=== PATIENT | female | born 1950 | race Caucasian/White ===

== ENCOUNTER → 2020-05-24 | Outpatient (CLI) | payer MEDICARE ==
[~2020-05-24] MED LIST: AMLO-211 PO; CARV6.2512 PO; CLOP75TA PO; ERGO500017 PO; FENO160T PO; FERR-46 PO; FURO80TA3 PO; ROSU40TA PO; SODI650T PO; SPIR25TA5 PO
[2020-05-24 17:12] LABS: BASOPHILS % (AUTO) 1 % (0-1); EOSINOPHILS % (AUTO) 3 % (1-7); LYMPHOCYTES % (AUTO) 23 % (22-44); MEAN CORPUSCULAR HEMOGLOBIN 27.6 pg (27.0-34.8); MEAN CORPUSCULAR HGB CONC 33.4 g/dL (32.4-35.8); MONOCYTES % (AUTO) 7 % (2-9); NEUTROPHILS % (AUTO) 67 % (42-75); PLATELET COUNT 437 x10^3/uL (130-400); RED BLOOD COUNT 4.74 x10^6/uL (3.82-5.3); RED CELL DISTRIBUTION WIDTH 15.3 % (9.6-15.2)
[2020-05-24 17:17] LABS: MD NO
[2020-05-24 17:20] LABS: ALANINE AMINOTRANSFERASE 21 U/L (12-78); ALBUMIN 2.6 g/dL (3.4-5.0); ANION GAP 9 mmol/L (5-15); CALCIUM 8.8 mg/dL (8.5-10.1); CHLORIDE 114 mmol/L (98-107); CREATININE 4.06 mg/dL (0.55-1.02)
[2020-05-24 17:23] LABS: ALKALINE PHOSPHATASE 83 U/L (45-117); BILIRUBIN,TOTAL 0.2 mg/dL (0.2-1.0); TOTAL PROTEIN 6.8 g/dL (6.4-8.2)
== END | disposition home or self-care (01) ==
LOC: STAR 15:27
PROVIDERS: ATTEND Surgery
DX: Z01.812 Encounter for preprocedural laboratory examination (principal); Z20.822 Contact with and (suspected) exposure to COVID-19; R94.31 Abnormal electrocardiogram [ECG] [EKG]; N18.9 Chronic kidney disease, unspecified
CPT/HCPCS: 36415; 80053; 85025; 93005; U0003

== ENCOUNTER → 2020-05-30 | Day surgery (SDC) | payer MEDICARE ==
[~2020-05-30] MED LIST changes: +CHLORHEXIDINE 15 ML UDC MM ONE; +CHLORHEXIDINE 15 ML UDC ONE; +HEPARIN 1,000 UNITS/ML, 10ML ONE; +PROTAMINE SULFATE 10 MG/ML, 5ML ONE; +SODIUM CHLORIDE 0.9% 1,000 ML IV SCH
== END | disposition home or self-care (01) ==
LOC: OR 16:13
PROVIDERS: ATTEND Surgery
DX: Z02.9 Encounter for administrative examinations, unspecified (principal)
CPT/HCPCS: J1644; J2720

== ENCOUNTER 2020-06-29 15:28 | Day surgery (SDC) | payer MEDICARE ==
[~2020-06-29] VITALS: Ht 160 cm; Wt 74.4 kg
[2020-06-29 15:28] VITALS: BP_SYST 76
[~2020-06-29 15:28] MED LIST changes: -CHLORHEXIDINE 15 ML UDC MM ONE; -CHLORHEXIDINE 15 ML UDC ONE; -HEPARIN 1,000 UNITS/ML, 10ML ONE; -PROTAMINE SULFATE 10 MG/ML, 5ML ONE; -SODIUM CHLORIDE 0.9% 1,000 ML IV SCH
[2020-06-29] MEDS ORDERED: CHLORHEXIDINE 15 ML UDC PO ONE (15:30)
[2020-06-29] MEDS ORDERED: SODIUM CHLORIDE 0.9% 1,000 ML IV SCH (15:30)
[2020-06-29] MEDS ORDERED: INSU100I43 INJ (16:06)
[2020-06-29] MEDS ORDERED: PAPAVERINE 30 MG/ML, 2ML ONE (17:18)
[2020-06-29] MEDS ORDERED: BUPIVACAINE 0.25% ONE (17:18)
[2020-06-29] MEDS ORDERED: HEPARIN 1,000 UNITS/ML, 10ML ONE (17:18)
[2020-06-29] MEDS ORDERED: THROMBIN 5,000 UNIT VIAL TP ONE (17:18)
[2020-06-29] MEDS ORDERED: LIDOCAINE 1%, 20ML ONE (17:19)
[2020-06-29] MEDS ORDERED: PROTAMINE SULFATE 10 MG/ML, 25ML ONE (17:19)
[2020-06-29] MEDS ORDERED: hydrALAzine 20 MG/ML, 1ML IV PRN (17:30)
[2020-06-29] MEDS ORDERED: PROMETHAZINE 25 MG/ML, 1ML IVPush PRN (17:30)
[2020-06-29] MEDS ORDERED: LABETALOL 5MG/ML, 20ML IV PRN (17:30)
[2020-06-29] MEDS ORDERED: HALOPERIDOL 5 MG/ML IV PRN (17:30)
[2020-06-29] MEDS ORDERED: OXYcodone 5 MG/5 ML ORAL.SOL UDC PO PRN (17:30)
[2020-06-29] MEDS ORDERED: MEPERIDINE/PF 25MG/0.5ML IVPush PRN (17:30)
[2020-06-29] MEDS ORDERED: HYDROmorphone 1 MG/ML, 1ML INJ IVPush PRN (17:30)
[2020-06-29] MEDS ORDERED: FENTANYL PF 100 MCG/2ML IV PRN (17:30)
[2020-06-29] MEDS ORDERED: DIPHENHYDRAMINE 50 MG/ML, 1ML IVPush PRN (17:30)
[2020-06-29] MEDS ORDERED: PROPOFOL 10 MG/ML, 20ML ONE (17:43)
[2020-06-29] MEDS ORDERED: ONDANSETRON 2MG/ML, 2ML ONE (17:43)
[2020-06-29] MEDS ORDERED: CEFAZOLIN 1,000 MG ONE (17:43)
[2020-06-29] MEDS ORDERED: hydrALAzine 20 MG/ML, 1ML ONE (18:53)
[2020-06-29] MEDS ORDERED: OXYcodone 5 MG/5 ML ORAL.SOL UDC ONE (19:48)
[2020-06-29] MEDS ORDERED: FENTANYL PF 100 MCG/2ML ONE (19:48)
== END 2020-06-29 20:50 | disposition home or self-care (01) ==
LOC: OR 15:28
PROVIDERS: ATTEND Surgery
DX: I12.9 Hypertensive chronic kidney disease with stage 1 through stage 4 chronic kidney disease, or unspecified chronic kidney disease (principal); E10.22 Type 1 diabetes mellitus with diabetic chronic kidney disease; N18.4 Chronic kidney disease, stage 4 (severe); E78.5 Hyperlipidemia, unspecified; I25.10 Atherosclerotic heart disease of native coronary artery without angina pectoris; E03.9 Hypothyroidism, unspecified; Z88.8 Allergy status to other drugs, medicaments and biological substances; Z91.041 Radiographic dye allergy status; Z79.4 Long term (current) use of insulin; Z79.899 Other long term (current) drug therapy; Z98.890 Other specified postprocedural states; Z20.822 Contact with and (suspected) exposure to COVID-19
CPT/HCPCS: 36821; 82962; 87635; J0360; J0690; J1644; J2405; J2704; J3010; J7030; J2720; J2440

== ENCOUNTER 2020-08-17 16:45 | Day surgery (SDC) | payer MEDICARE ==
[~2020-08-17] VITALS: Ht 161.3 cm; Wt 76.3 kg
[~2020-08-17 16:45] MED LIST changes: +CHLORHEXIDINE 15 ML UDC ONE; +CHLORHEXIDINE 15 ML UDC PO ONE; +EPHEDRINE 50 MG/ML, 1ML IVPush PRN; +FENTANYL PF 100 MCG/2ML IV PRN; +HYDROmorphone 1 MG/ML, 1ML INJ IVPush PRN; +INSU100I43 INJ; +LABETALOL 5MG/ML, 20ML IV PRN; +ONDANSETRON 2MG/ML, 2ML IVPush PRN; +OXYcodone 5 MG/5 ML ORAL.SOL UDC PO PRN; +PROMETHAZINE 25 MG/ML, 1ML IVPush PRN; +SODIUM CHLORIDE 0.9% 1,000 ML IV SCH; +hydrALAzine 20 MG/ML, 1ML IV PRN
[2020-08-17 16:57] VITALS: BP 176/76
[2020-08-17 17:02] VITALS: BP 176/76
[2020-08-17] MEDS ORDERED: ACETAMINOPHEN 500 MG TABLET PO STA (17:23)
[2020-08-17] MEDS ORDERED: FENTANYL PF 100 MCG/2ML ONE (19:09)
[2020-08-17] MEDS ORDERED: MIDAZOLAM 1 MG/ML, 2ML ONE (19:09)
[2020-08-17] MEDS ORDERED: BUPIVACAINE/PF 0.25% ONE (19:24)
[2020-08-17] MEDS ORDERED: HEPARIN 1,000 UNITS/ML, 10ML ONE (19:24)
[2020-08-17] MEDS ORDERED: LABETALOL 5MG/ML, 20ML IV PRN (19:30)
[2020-08-17] MEDS ORDERED: hydrALAzine 20 MG/ML, 1ML IV PRN (19:30)
[2020-08-17] MEDS ORDERED: MEPERIDINE/PF 25MG/0.5ML IVPush PRN (19:30)
[2020-08-17] MEDS ORDERED: OXYcodone 5 MG/5 ML ORAL.SOL UDC PO PRN (19:30)
[2020-08-17] MEDS ORDERED: DIPHENHYDRAMINE 50 MG/ML, 1ML IVPush PRN (19:30)
[2020-08-17] MEDS ORDERED: PROMETHAZINE 25 MG/ML, 1ML IVPush PRN (19:30)
[2020-08-17] MEDS ORDERED: HYDROmorphone 1 MG/ML, 1ML INJ IVPush PRN (19:30)
[2020-08-17] MEDS ORDERED: ACETAMINOPHEN 325 MG TABLET PO PRN (19:30)
[2020-08-17] MEDS ORDERED: FENTANYL PF 100 MCG/2ML IV PRN (19:30)
[2020-08-17] MEDS ORDERED: EPHEDRINE 50 MG/ML, 1ML ONE (19:48)
[2020-08-17] MEDS ORDERED: DEXAMETHASONE 4 MG/ML, 5ML ONE (19:48)
[2020-08-17] MEDS ORDERED: ONDANSETRON 2MG/ML, 2ML ONE (20:34)
[2020-08-17] MEDS ORDERED: CEFAZOLIN 1,000 MG ONE (20:34)
[2020-08-17] MEDS ORDERED: PROPOFOL 10 MG/ML, 20ML ONE (20:34)
== END 2020-08-17 22:15 | disposition home or self-care (01) ==
LOC: OR 16:45
PROVIDERS: ATTEND Surgery
DX: E11.22 Type 2 diabetes mellitus with diabetic chronic kidney disease (principal); I12.0 Hypertensive chronic kidney disease with stage 5 chronic kidney disease or end stage renal disease; N18.6 End stage renal disease; E78.5 Hyperlipidemia, unspecified; I25.10 Atherosclerotic heart disease of native coronary artery without angina pectoris; E89.0 Postprocedural hypothyroidism; E66.3 Overweight; Z68.28 Body mass index [BMI] 28.0-28.9, adult; Z20.822 Contact with and (suspected) exposure to COVID-19; Z79.4 Long term (current) use of insulin; Z79.899 Other long term (current) drug therapy; Z86.73 Personal history of transient ischemic attack (TIA), and cerebral infarction without residual deficits; Z88.8 Allergy status to other drugs, medicaments and biological substances; Z95.1 Presence of aortocoronary bypass graft
CPT/HCPCS: 36821; 82962; 87635; J0690; J1100; J1644; J2250; J2405; J2704; J3010; J7030

== ENCOUNTER 2020-12-19 15:07 | Day surgery (SDC) | payer MEDICARE ==
[~2020-12-19] VITALS: Ht 160 cm; Wt 79.2 kg
[2020-12-19 16:21] VITALS: BP 180/76
== END 2020-12-19 21:20 | disposition home or self-care (01) ==
LOC: OR 15:07
PROVIDERS: ATTEND Surgery
DX: E11.22 Type 2 diabetes mellitus with diabetic chronic kidney disease (principal); I12.0 Hypertensive chronic kidney disease with stage 5 chronic kidney disease or end stage renal disease; N18.6 End stage renal disease; I25.10 Atherosclerotic heart disease of native coronary artery without angina pectoris; J44.9 Chronic obstructive pulmonary disease, unspecified; E89.0 Postprocedural hypothyroidism; Z20.822 Contact with and (suspected) exposure to COVID-19; Z88.8 Allergy status to other drugs, medicaments and biological substances; Z95.1 Presence of aortocoronary bypass graft; Z99.3 Dependence on wheelchair; Z83.3 Family history of diabetes mellitus; Z82.49 Family history of ischemic heart disease and other diseases of the circulatory system
CPT/HCPCS: 36832; 71045; 80048; 82962; 85025; 87635; 93005; J0330; J0360; J0690; J1644; J2250; J2405; J2704; J2720; J3010; J7030